=== PATIENT | female | born 1960 | race Caucasian/White ===

== ENCOUNTER 2019-05-03 21:53 | Emergency (ER) | payer MEDICAID, OTHER ==
[~2019-05-03] VITALS: Ht 157.5 cm; Wt 73.7 kg
[~2019-05-03 21:53] MED LIST: IBUP800T48 PO; OMEP40CA6 PO; ONDA4TAB14 PO; [UNRECOGNIZED DRUG - REMARK]
[2019-05-03 21:57] VITALS: Ht 157.5 cm; Wt 73.7 kg
[2019-05-03] MEDS ORDERED: ONDANSETRON (ODT) 4 MG TAB ODT STA (22:34)
[2019-05-03] MEDS ORDERED: ACETAMINOPHEN 500 MG TAB PO STA (22:34)
[2019-05-04 00:05] VITALS: BP 112/56; PULSE 71; RESP 17
== END 2019-05-04 00:05 | disposition home or self-care (01) ==
LOC: FTE 21:53
DX: S06.0X0A Concussion without loss of consciousness, initial encounter (principal); E11.9 Type 2 diabetes mellitus without complications; W01.0XXA Fall on same level from slipping, tripping and stumbling without subsequent striking against object, initial encounter; Y92.009 Unspecified place in unspecified non-institutional (private) residence as the place of occurrence of the external cause
CPT/HCPCS: 70450; Z7502; Z7610